=== PATIENT | male | born 1950 | race Caucasian/White ===

== ENCOUNTER 2019-09-17 15:23 | Emergency (ER) | payer OTHER ==
[~2019-09-17] VITALS: Ht 177.8 cm; Wt 70.3 kg
[2019-09-17 15:23] VITALS: BP 122/68
[2019-09-17] MEDS ORDERED: MOBIC7.5 MG PO (16:53)
[2019-09-17] MEDS ORDERED: NORCO 5-325 TA1 EAC1 PO (16:53)
== END 2019-09-17 16:50 | disposition home or self-care (01) ==
LOC: ER 15:23
DX: M25.551 Pain in right hip (principal); Z88.8 Allergy status to other drugs, medicaments and biological substances